=== PATIENT | female | born 1965 | race Caucasian/White ===

== ENCOUNTER → 2020-05-15 | Day surgery (SDC) | payer OTHER ==
[~2020-05-15] MED LIST: ACTONEL5 MG PO; CELEXA20 MG PO; DALIRESP500 MCG PO; EPIPEN0.3 MG/0.3 IM; LEVAQUIN500 MG PO; LEVAQUIN750 MG PO; MEDROL 4MG DOSEP4 MG PO; MUCINEX 600MG600 MG PO; NAPROXEN500 MG PO; OXYGEN; OYSTER SHELL C500 MG PO; PERFOROMIS20 MCG/2 M INH; PERFOROMIS20 MCG/2 M NEB; PRILOSEC20 MG PO; PULMICORT0.5 MG/2 M NEB; SINGULAIR10 MG PO; SPIRIVA 185 PUFFS/IN INH; SYNTHROID50 MCG PO; VENTOLIN HFA IN18 GM INH; [UNRECOGNIZED DRUG - SUPPLY] XX
[2020-05-15 08:02] LABS: HCG (URINE) SCREEN NEGATIVE (NEGATIVE)
[2020-05-15 08:24] LABS: HCT 39.7 % (37.0-47.0); MCH 31.6 pg (25.0-31.0); MCHC 32.7 g/dL (32.0-36.0); MCV 96.6 fL (78.0-100.0); MPV 9.8 fL (6.0-9.5); RBC 4.11 M/uL (4.20-5.40); RDW 13.2 % (11.5-14.0); WBC 4.8 K/uL (4.0-10.5)
== END | disposition home or self-care (01) ==
LOC: FAS 07:37
PROVIDERS: Surgery
DX: Z12.11 Encounter for screening for malignant neoplasm of colon (principal); J44.9 Chronic obstructive pulmonary disease, unspecified; K21.9 Gastro-esophageal reflux disease without esophagitis; E03.9 Hypothyroidism, unspecified; M81.0 Age-related osteoporosis without current pathological fracture; Z99.81 Dependence on supplemental oxygen; Z88.1 Allergy status to other antibiotic agents; Z88.8 Allergy status to other drugs, medicaments and biological substances; Z79.899 Other long term (current) drug therapy
CPT/HCPCS: 36415; 84703; J2250; J2704; J7120

== ENCOUNTER 2021-05-03 20:00 | Emergency (ER) | payer OTHER ==
[2021-05-03 20:38] LABS: BASOPHIL 0.2 % (0-2); EOSINOPHIL 0 % (0-5); HGB 12.3 g/dl (12.5-16.0); LYMPHOCYTE 11.9 % (15-48); MCH 30.8 pg (25.0-31.0); MCHC 32.4 g/dL (32.0-36.0); MONOCYTE 7.6 % (0-12); MPV 9.5 fL (6.0-9.5); NEUTROPHIL 79.8 % (41-80); NRBC 0; PLT 245 K/uL (150-400); RDW 13.5 % (11.5-14.0); WBC 9.8 K/uL (4.0-10.5)
[2021-05-03 20:58] LABS: ALBUMIN 3.2 g/dL (3.4-5.0); BILIRUBIN - TOTAL 0.5 mg/dL (0.2-1.0); BUN/CREAT RATIO (CALC) 17.6 RATIO; CREATININE 0.74 mg/dL (0.51-0.95); POTASSIUM 3.8 mmol/L (3.5-5.1); TOTAL PROTEIN 8.2 g/dL (6.4-8.2)
[2021-05-03 21:27] LABS: LACTIC ACID 0.5 mmol/L (0.4-1.9)
[2021-05-03] MEDS ORDERED: VENTOLIN HFA18 GM INH ×2 (22:48→23:10)
[2021-05-03] MEDS ORDERED: AMOX TR-K CLV1 EAC4 PO ×2 (22:48→23:10)
[2021-05-03] MEDS ORDERED: VIBRAMYCIN100 MG PO ×2 (22:48→23:10)
== END 2021-05-03 23:05 | disposition home or self-care (01) ==
LOC: FER 20:00
PROVIDERS: Emergency Medicine
DX: J44.0 Chronic obstructive pulmonary disease with (acute) lower respiratory infection (principal); J18.9 Pneumonia, unspecified organism; R91.1 Solitary pulmonary nodule; Z88.1 Allergy status to other antibiotic agents
CPT/HCPCS: 36415; 71045; 71275; 80053; 83605; 84145; 84484; 85025; 85379; 87040; 93005; 94640; 94664; J2543; J2930; Q9967